=== PATIENT | female | born 2000 | race Two or more races ===

== ENCOUNTER 2022-03-08 11:21 | Day surgery (SDC) | payer OTHER ==
[2022-03-08 11:51] VITALS: BMI 30.7
[2022-03-08] MEDS ORDERED: hydrALAZINE 20 MG/ML VIAL SLOW IVP PRN (13:35)
[2022-03-08] MEDS ORDERED: Lidocaine 2% Jelly 5 ML TUBE TOP PRN (13:40)
[2022-03-08] MEDS ORDERED: Promethazine HCl 25 MG/ML VIAL IM PRN (13:55)
[2022-03-08] MEDS ORDERED: Boudreaux's Butt Paste 60 GM TUBE ONE (13:57)
[2022-03-08] MEDS ORDERED: Morphine 2 MG/ML VIAL SLOW IVP SCH (14:00)
[2022-03-08] MEDS ORDERED: Morphine 4 MG/ML VIAL ONE (14:12)
[2022-03-08] MEDS ORDERED: Lidocaine 1% PF 10 ML AMP ONE (14:22)
[2022-03-08] MEDS ORDERED: Lidocaine 1% 20 ML MDV SC SCH (14:30)
[2022-03-08] MEDS ORDERED: cefTRIAXone\\ROCEPHIN 2 GM VIAL IM SCH (15:00)
== END 2022-03-08 15:40 | disposition home or self-care (01) ==
LOC: CSHLD/OP 11:21
PROVIDERS: ATTEND Obstetrics & Gynecology
DX: O23.593 Infection of other part of genital tract in pregnancy, third trimester (principal); O34.03 Maternal care for unspecified congenital malformation of uterus, third trimester; Q51.3 Bicornate uterus; Z3A.34 34 weeks gestation of pregnancy
CPT/HCPCS: 87070; 87077; 87205; J0696; J2001; J2270; J2550